=== PATIENT | female | born 1940 | race Caucasian/White ===

== ENCOUNTER → 2016-08-12 | Outpatient (CLI) | payer OTHER, BC ==
[~2016-08-12] MED LIST: ACET-1256 PO; ANT25 PO; ASPCH81X PO; CETI10TA84 PO; DICL-201 PO; LORA-741 PO; MECL1TAB42 PO; METO25TA3 PO; OMEG10007 PO
[2016-08-12 13:50] VITALS: BP 178/76; PULSE 68; TEMP 37; O2SAT 94
--- NOTE | 2016-08-12 14:30 | Radiation Oncology Follow-Up ---
Radiation Oncology Follow-Up Date of Visit Aug 12, 2016. Reason For Visit Annual follow-up Radiation Completion Date Ext. radiation and HDR x 4 01/10/16 Diagnosis (1) Uterus cancer Status: Resolved Onset Date: 08/03/2013 Location: endometrium with vaginal recurrence Histology Subtype: endometrioid adenocarcinoma Stage: ll Permanent Comment: Endometrial biopsy 08/03/2013 revealing endometrioid adenocarcinoma Status post biopsy and robotic hysterectomy with bilateral salpingo- oophorectomy and lymphadenectomy 06/29/2014 pathologic stage [id number] Patient declined adjuvant treatment Vaginal recurrence biopsy 09/10/2014 Status post vaginal biopsy and resection of vaginal tumor 10/03/2014 Status post completion of radiation therapy 01/09/2015 received 5040 cGy with external beam therapy she received 4 high-dose radiation treatments 1400 cGy Last Edited By: Kalie Ventura on Jan 30, 2015 10:50 History of Present Illness Ms. Correa is a 75-year-old female who presented in June 2013 with postmenopausal vaginal bleeding. She had previously had postmenopausal bleeding with prior biopsies in 1996, 1999, 2000, 2001, 2002, 2003, 2004 and 2005. These were all benign. More recently she had recurrent postmenopausal vaginal bleeding and underwent a endometrial biopsy on July 232013. This was positive for an endometrioid adenocarcinoma, FIGO grade 2. Accession #: [id number]. The patient was seen by Dr. Milian and ultimately underwent a robotic hysterectomy, bilateral salpingooophorectomy and lymphadenectomy on 08/30/2013. This tissue confirmed an endometrioid adenocarcinoma measuring 9.4 x 4.0 x 2.2 cm. This was a FIGO grade 2 lesion. There was invasion through 2.2 cm of a myometrial thickness of 2.3 cm. There was invasion of the cervical stromal connective tissue. There was no involvement of the right or left ovary or right or left fallopian tube. The margins were negative but the distance of invasive carcinoma from the closest margin was 0.1 mm. There was lymphovascular invasion. 3 pelvic nodes were identified and all 3 were negative. The final pathologic stage was pT2 pN0 FIGO grade 2. Postoperatively the patient recovered well. She was seen for discussion of adjuvant treatment. This was recommended for consideration of adjuvant radiation. The patient however declined treatment at that time. She was continued to be followed closely. In August of this year she was found to have a vaginal mass that was biopsied on 09/09/2014. This confirmed a recurrent endometrioid adenocarcinoma. Accession #: [id number]. On patient underwent a staging workup consisting of a CT scan of the chest abdomen and pelvis. CT scan of the chest showed few tiny pulmonary nodules within the left lower, right upper and right lower lobes measuring less than [address] scan of the abdomen showed no evidence of abdominal recurrence with no lymphadenopathy or involvement of the abdominal organs. CT scan of the pelvis showed an enhancing 1.4 x 2.7 cm lesion along the left aspect of the upper vaginal stump that was suspicious for recurrent disease. The patient was noted to have a large rectocele. There was a 1 cm mass in the vagina at 6 o'clock position proximally 6 cm from the introitus. She also had a large 3 cm lesion at the left apex of the vagina. On 10/03/2014 an excisional biopsy of the 2 clinically evident vaginal lesions were performed. The biopsy of the left apex confirmed endometrioid adenocarcinoma. Biopsy of the posterior vaginal lesion also confirmed endometrioid adenocarcinoma. These were gross total excisions but not meant to be definitive surgical procedures. Accession #: [id number]. The patient was seen in referral by Dr. Potter radiation oncologist at [facility]. Her recommendation was for consideration of pelvic radiation followed by vaginal cuff boost. The patient wished to receive her treatment closer to home and therefore Dr. Potter referred the patient to me for evaluation and discussion of the role of salvage radiation. Interim History She's been doing well over the past year. She denies any vaginal discharge or irritation. She's had no vaginal bleeding. She's had no change in urination or bowel habits. She saw Dr. Milian 07/01/2016. He felt that she no longer needed to use the vaginal dilator. Her appetite is good and weight is stable. She did have a flu last weekend. This lasted for approximately 3 days. She is now feeling fine. There have been other family members who are ill. She had associated fever and chills. She had Zofran which had previously been given during treatment. She took this and the nausea resolved. 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 She was hospitalized in February for vertigo. She was evaluated and there were no particular findings. She had a CT of the head that was negative for acute intracranial findings. She had carotid Dopplers which did not show arterial stenosis. Allergies Coded Allergies: Cephalosporins (Verified Allergy, Intermediate, RASH, 02/21/13) Penicillins (Verified Allergy, Intermediate, RASH, 02/21/13) Sulfa Drugs (Verified Allergy, Intermediate, RASH, 02/21/13) Travoprost (Unverified Allergy, Intermediate, eyes get red, 02/13/15) Celecoxib (Verified Allergy, Unknown, UNKNOWN, 02/13/15) Home Medications Scheduled Aspirin (Aspirin Chewable), 81 MG PO DAILY Diclofenac (Voltaren), 75 MG PO BID Fish Oil ([place]-3), 1 CAP PO DAILY Lorazepam (Ativan), 0.5 MG PO HS Metoprolol Succinate (Toprol Xl), 25 MG PO DAILY Scheduled PRN Acetaminophen (Tylenol), 2 TAB PO Q6 PRN for Moderate Pain Cetirizine (Zyrtec), 10 MG PO DAILY PRN for allergies Meclizine Hcl (Meclizine Hcl), 1 TAB PO TID PRN for Dizziness or Vertigo Review of Systems Gastrointestinal: Symptoms: WNL GI Comments: Benefiber nightly; Oral: Symptoms: No Problems Respiratory: Symptoms: SOB With Exertion Urinary: Symptoms: WNL Comments: Urgency;2hrs is max betw'n voids;Denies changes since RT Skin: Symptoms: No Problems Other Skin Symptoms: no prob on skin but internally having pruritis feels raw using dilator Physical Exam Vital Signs Date Time Temp Pulse Resp B/P Pulse Ox O2 Delivery O2 Flow Rate FiO2 08/12/16 13:50 37.0 68 24 178/76 94 Pain: Side: Bilateral Patient Pain Scale: 0 - 10 Initial Pain Intensity: 0.0 Fatigue: None General Appearance: no apparent distress Eyes: normal inspection, EOMI Neck: no adenopathy Respiratory/Chest: lungs clear, no respiratory distress, no accessory muscle use Cardiovascular: regular rate, rhythm, no gallop, no murmur Abdomen: normal bowel sounds, non tender, soft, no organomegaly Genitourinary - Female: Pelvic examination reveals foreshortening of the vagina. There are no visible or palpable recurrences. She does have telangiectasis at the apex. There are no masses or tenderness on bimanual examination. Anal / Rectum: Deferred at patient request. Extremities: no pedal edema Neurologic/Psychiatric: no motor/sensory deficits, normal mood/affect Skin: warm/dry Lymphatic: no adenopathy Laboratory Studies Test 05/21/16 08:35 White Blood Count 5.13 K/uL (4.8-10.8) Red Blood Count 4.44 M/uL (4.2-5.4) Hemoglobin 14.0 g/dL (12.0-16.0) Hematocrit 41.5 % (37-47) Mean Corpuscular Volume 93.5 fL (80-100) Mean Corpuscular Hemoglobin 31.5 pg (25-34) Mean Corpuscular Hemoglobin Concent 33.7 g/dl (32-36) Platelet Count 267 K/uL (130-400) Mean Platelet Volume 9.8 fL (7.4-10.4) Neutrophils (%) (Auto) 59.2 % Lymphocytes (%) (Auto) 27.5 % Monocytes (%) (Auto) 8.8 % Eosinophils (%) (Auto) 3.1 % Basophils (%) (Auto) 0.8 % Neutrophils # (Auto) 3.04 K/uL (1.4-6.5) Lymphocytes # (Auto) 1.41 K/uL (1.2-3.4) Monocytes # (Auto) 0.45 K/uL (0.11-0.59) Eosinophils # (Auto) 0.16 K/uL (0-0.5) Basophils # (Auto) 0.04 K/uL (0-0.2) RDW Standard Deviation 41.9 fL (36.4-46.3) RDW Coefficient of Variation 12.4 % (11.5-14.5) Immature Granulocyte % (Auto) 0.6 % Immature Granulocyte # (Auto) 0.03 K/uL (0.00-0.02) Sodium Level 142 mmol/L (136-145) Potassium Level 3.9 mmol/L (3.5-5.1) Chloride Level 109 mmol/L (98-107) Carbon Dioxide Level 24 mmol/L (21-32) Anion Gap 9.0 mmol/L (3-11) Blood Urea Nitrogen 16 mg/dl (7-18) Creatinine 0.90 mg/dl (0.60-1.20) Estimated GFR () 71.5 Estimated GFR (Non- 61.7 BUN/Creatinine Ratio 18.1 (10-20) Random Glucose 134 mg/dl (70-99) Estimated Average Glucose 131 mg/dl Hemoglobin A1c 6.2 % (4.5-5.6) Calcium Level 8.4 mg/dl (8.5-10.1) Total Bilirubin 0.3 mg/dl (0.2-1) Aspartate Amino Transferase (AST) 32 U/L (15-37) Alanine Aminotransferase (ALT) 47 U/L (12-78) Alkaline Phosphatase 73 U/L (45-117) Total Protein 7.0 gm/dl (6.4-8.2) Albumin 3.7 gm/dl (3.4-5.0) Globulin 3.3 gm/dl (2.5-4.0) Albumin/Globulin Ratio 1.1 (0.9-2) Triglycerides Level 312 mg/dl (0-150) Cholesterol Level 223 mg/dl (0-200) HDL Cholesterol 40 mg/dl LDL Cholesterol, Calculated 121 mg/dl VLDL Cholesterol, Calculated 62 mg/dl Cholesterol/HDL Ratio 5.6 Assessment & Plan Plan: Continue regular follow-up with Dr. Milian and Dr. Goff. She'll be seeing Dr. Milian on October 25. We asked to return to our office in 1 year. She may call our office if she has any questions or concerns in the interim. Total Time In Follow-Up I spent 20 minutes speaking to the patient performing examination. I spent 10 minutes reviewing information and completing's note. Copy To Angel Milian M.D.; Shelton Goff M.D.
== END | disposition home or self-care (01) ==
LOC: C.ONC 13:18
PROVIDERS: ATTEND Radiology Radiation Oncology
DX: Z08 Encounter for follow-up examination after completed treatment for malignant neoplasm (principal); Z92.3 Personal history of irradiation; Z85.42 Personal history of malignant neoplasm of other parts of uterus

== ENCOUNTER → 2017-06-06 | Outpatient (CLI) | payer OTHER, BC ==
[~2017-06-06] MED LIST changes: -ANT25 PO
--- NOTE | 2017-06-06 14:45 | MAMMOGRAPHY REPORT ---
BILATERAL DIGITAL SCREENING MAMMOGRAM TOMOSYNTHESIS WITH CAD: 06/06/2017 CLINICAL HISTORY: Routine screening. Patient has no complaints. TECHNIQUE: Breast tomosynthesis in addition to standard 2D mammography was performed. Current study was also evaluated with a Computer Aided Detection (CAD) system. COMPARISON: No prior exams were available for comparison. A reported mammogram from 2004 have been purged. BREAST COMPOSITION: The tissue of both breasts is heterogeneously dense, which may obscure small mas ses. FINDINGS: There is a possible area of architectural distortion in the middle one third of the left b reast along the posterior nipple line on the CC view (tomosynthesis slice 43/66), thought to project superiorly based on the MLO view. Additional spot compression tomosynthesis views and possible ultra sound are recommended. There are scattered benign rim calcifications bilaterally. No other suspicious mass, architectural di stortion or cluster of microcalcifications is seen. IMPRESSION: ACR BI-RADS CATEGORY 0: INCOMPLETE EVALUATION: NEED ADDITIONAL IMAGING EVALUATION The possible area of architectural distortion in the middle one third of the left breast needs additi onal evaluation. The patient will be called to schedule an appointment. Approximately 10% of breast cancers are not detected with mammography. A negative mammographic report should not delay biopsy if a clinically suggestive mass is present. Yanci Valentine M.D. ay/:06/06/2017 13:13:56 Business Assistant: Massiel MCCRAY(Afshin)([place]), [facility] letter sent: Addl Imaging 0 BI-RADS Code: ACR BI-RADS Category 0: Incomplete Evaluation: Need Additional Imaging Evaluation
== END | disposition home or self-care (01) ==
LOC: C.MAMM 10:47
PROVIDERS: ATTEND Obstetrics & Gynecology
DX: Z12.31 Encounter for screening mammogram for malignant neoplasm of breast (principal); N64.89 Other specified disorders of breast

== ENCOUNTER → 2017-06-15 | Outpatient (CLI) | payer OTHER, BC ==
--- NOTE | 2017-06-16 07:55 | MAMMOGRAPHY REPORT ---
UNILATERAL LEFT DIGITAL DIAGNOSTIC MAMMOGRAM TOMOSYNTHESIS AND TARGETED LEFT ULTRASOUND: 06/15/2017 CLINICAL HISTORY: 76-year-old woman called back from screening mammography for a possible area of arc hitectural distortion in the left breast. TECHNIQUE: Spot compression tomosynthesis left CC and MLO views were obtained. Full field tomosynth esis left CC and ML views were also obtained after placement of a skin BB marker. COMPARISON: Comparison is made to exam dated: 06/06/2017 mammogram - [facility]. BREAST COMPOSITION: The tissue of the left breast is heterogeneously dense, which may obscure small masses. FINDINGS: The spot compression tomosynthesis views of the left breast demonstrate a persistent area of focal architectural distortion in the 12:00 middle to anterior left breast, 5 cm distal to the nip ple on the CC view, measuring approximately 13 mm. No other definite areas of distortion or asymmetr y is identified. Further evaluation with ultrasound was performed. Targeted ultrasound was performed in the left breast from the 1:00 through 11:00 axes. There is hypo echoic tissue in the 1:00 left breast, 9 cm from the nipple that may simply represent normal dense ti ssue and stromal fibrosis. There is no definite associated distortion in this area and real-time sca nning. However in the 11:00 left breast, 4 cm from the nipple, there is a more masslike hypoechoic a stephanie with possible associated distortion. This mass measures 1.3 x 0.9 x 0.7 cm. Given the subtle na ture it is unclear if this definitely correlates with the mammographic distortion therefore a skin BB was placed overlying this sonographic mass in the field left CC and ML tomosynthesis images were per formed. These additional tomosynthesis views demonstrate alignment of the BB marker with the mammogr aphic abnormality. Therefore, ultrasound-guided core needle biopsy is recommended. Tomosynthesis guided biopsy was also discussed with the patient, but she reports she would not be abl e to lie on her stomach for at the biopsy therefore ultrasound-guided biopsy is preferred. IMPRESSION: ACR BI-RADS CATEGORY 4: SUSPICIOUS, TARGETED ULTRASOUND ACR BI-RADS CATEGORY 4: SUSPICIO US 1. There is a hypoechoic 13 mm mass with associated architectural distortion in the 12:00 left breas t that is suspicious for malignancy. Further evaluation with an ultrasound-guided core biopsy and po stprocedure tomosynthesis mammograms is recommended. These results and recommendations were discussed with the patient at the time of the exam. She tenta tively scheduled the left breast biopsy prior to leaving our department. Approximately 10% of breast cancers are not detected with mammography. A negative mammographic report should not delay biopsy if a clinically suggestive mass is present. Yanci Valentine M.D. ay/:06/15/2017 15:36:36 Journeyman Millwright: Symone MCCRAY(Afshin)([place]), [facility] letter sent: Abnormal 4/5 BI-RADS Code: ACR BI-RADS Category 4: Suspicious Ultrasound BI-RADS: ACR BI-RADS Category 4: Suspici ous
== END | disposition home or self-care (01) ==
LOC: C.MAMM 13:39
PROVIDERS: ATTEND Obstetrics & Gynecology
DX: N64.9 Disorder of breast, unspecified (principal); N63.20 Unspecified lump in the left breast, unspecified quadrant

== ENCOUNTER → 2017-06-22 | Outpatient (CLI) | payer OTHER, BC ==
--- NOTE | 2017-06-22 14:25 | Discharge Instructions ---
Discharge Instructions Procedure Procedure Date: Jun 22, 2017. Reason for visit: Left Breast Mass. Discharge Discharge Date: Jun 22, 2017. Discharge Diagnosis: post left breast ultrasound guided core biopsy Instructions Activity Recommendations: Additional Limitations (see below) Return to School/Work: no limitations Recommended Home Diet: No Limitations Provider Instructions: ACTIVITY RECOMMENDATIONS: * No lifting, pushing, pulling or exercising the affected side for three days. RETURN TO SCHOOL/WORK: * You may return to work/school after the procedure, but do not perform any strenuous activities for 24 to 48 hours. MEDICATIONS: * Tylenol (two 325 mg) every four to six hours if needed for mild pain (if not allergic to Tylenol). DIET: * Resume previous diet. SPECIAL CARE INSTRUCTIONS: * Keep biopsy site dry for 24 hours. May shower after 24 hours, but do not soak (bathe) incision. * May remove Tegaderm (plastic patch) tomorrow AFTER showering. * Leave the steri-strips on for one week. Allow the steri-strips to fall off by themselves. If not off after one week, you may remove them. You may place a Bandaid crosswise over the strips, if desired. * Apply ice 10 minutes on and 10 minutes off as needed. * Wear a bra at bedtime to sleep more comfortably for 2-3 days. * Your referring physician should have the results after approximately 5 to 7 business days. * Call for unusual bleeding, fever, drainage, etc or if you have any questions call [phone] during normal business hours or after hours call Dr Valentine, . FOLLOW UP VISIT: Follow-up with Referring Physician as scheduled. Allergies Coded Allergies: Cephalosporins (Verified Allergy, Intermediate, RASH, 02/21/13) Penicillins (Verified Allergy, Intermediate, RASH, 02/21/13) Sulfa Drugs (Verified Allergy, Intermediate, RASH, 02/21/13) Travoprost (Unverified Allergy, Intermediate, eyes get red, 02/13/15) Celecoxib (Verified Allergy, Unknown, UNKNOWN, 02/13/15) Johnna Arevalo Recommendations: Call your doctor if: * Temperature above 101 degrees * Pain not relieved by pain medicine ordered * There is increased drainage or redness from any incision * You have any unanswered questions or concerns. Your Doctors Instructions noted above were prepared by provider Yanci Valentine. Patient Signature Section: Patient Instructions Signature Page Maria Esther Correa Patient (or Guardian) Signature/Date: I have read and understand the instructions given to me by my caregivers. Caregiver/RN/Doctor Signature/Date: The above-named patient and/or guardian has received patient instructions on this date. + Original Patient Signature Page (only) stays with chart. Please make copy for patient.
--- NOTE | 2017-06-22 15:15 | MAMMOGRAPHY REPORT ---
THIS REPORT HAS BEEN AMENDED. ULTRASOUND GUIDED BIOPSY LEFT BREAST: 06/22/2017 CLINICAL HISTORY: 13 mm mass with associated architectural distortion in the 11:00 to 12:[address] Patient presents for ultrasound-guided core biopsy. COMPARISON: Comparison is made to exams dated: 06/15/2017 ultrasound, 06/15/2017 mammogram, and 05/19 mammogram - [facility]. PATIENT CONSENT: The procedure, risks and benefits were discussed with the patient and informed conse nt was obtained both verbally and in writing. Specific risks to this procedure include: bleeding, in fection, puncture of adjacent structure, nontarget biopsy, sampling error, pain, metal allergy and me dication reaction. PROCEDURE DESCRIPTION: A time out was performed and the left breast was agreed as the site of biopsy. The skin was prepped and draped in the usual sterile fashion. The 13 mm hypoechoic mass with associa dudley architectural distortion in the 11:00 to 12:00 left breast was chosen as the target for biopsy. S ubcutaneous and intraparenchymal 1% buffered lidocaine, with and without epinephrine, was administere d as local anesthesia. A skin incision was made. Through the incision, 5 samples were taken with a 1 4 gauge Achieve biopsy device. A ribbon shaped metallic marker was placed at the biopsy site. Hemosta sis was achieved after manual compression. The patient tolerated the procedure well and there was no immediate complication. The samples were sent to the pathology department in an appropriately labele d container. Postprocedure left CC and ML tomosynthesis images were obtained. A new ribbon-shaped biopsy marker c lip is identified in the 12:00 left breast, aligning with the area of architectural distortion in que stion. No significant postbiopsy hematoma is seen. IMPRESSION: ULTRASOUND GUIDED BIOPSY Status post ultrasound guided core biopsy of a 13 mm mass with associated architectural distortion in the 12:00 left breast, with biopsy marker clip placed at the site. The patient will receive notification of the biopsy results from her referring physician. Yanci Valentine M.D. ay/:06/22/2017 14:41:56 Attending Technologist: Mouna VELIZ)([place]), [facility] Founder Chairman And Chief Creative Officer: Dr. Yanci Valentine, [facility] AMENDMENT: 06/23/2017 Yanci Meme, M.D. 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 Estrogen and progesterone receptor positive, HER-2/sonya negative. The pathology results are concordant with the imaging appearance. Given the heterogeneously dense breast parenchyma, would rec ommend a breast MRI prior to definitive treatment, to assess extent of disease in the left breast and also to assess for the possibility of contralateral disease.
--- NOTE | 2017-06-22 15:18 | MAMMOGRAPHY REPORT ---
UNILATERAL LEFT DIGITAL DIAGNOSTIC MAMMOGRAM TOMOSYNTHESIS: 06/22/2017 CLINICAL HISTORY: Status post ultrasound-guided core biopsy of a hypoechoic mass with associated arch itectural distortion in the 11:00 to 12:00 left breast. Please refer to the report from left breast ultrasound guided core biopsy performed at the same time for full detail. IMPRESSION: POST PROCEDURE IMAGING FOR MARKER PLACEMENT Please refer to the report from left breast ultrasound guided core biopsy performed at the same time for full detail. Approximately 10% of breast cancers are not detected with mammography. A negative mammographic report should not delay biopsy if a clinically suggestive mass is present. Yanci Valentine M.D. ay/:06/22/2017 14:24:09 Organ Installer: Mouna MCCRAY(R)(M), [facility] BI-RADS Code: Post Procedure Imaging For Marker Placement
== END | disposition home or self-care (01) ==
LOC: C.MAMM 13:27
PROVIDERS: ATTEND Obstetrics & Gynecology
DX: C50.912 Malignant neoplasm of unspecified site of left female breast (principal)

== ENCOUNTER → 2017-07-29 | Outpatient (CLI) | payer OTHER, BC ==
--- NOTE | 2017-07-29 14:42 | DIAGNOSTIC IMAGING REPORT ---
CHEST 2 VIEWS ROUTINE CLINICAL HISTORY: Preoperative evaluation. COMPARISON STUDY: Chest radiograph February 21, 2014. FINDINGS: Mild lung hyperexpansion is noted. Linear left apical opacity suggests scarring. There is no consolidation to suggest pneumonia. Pulmonary vascularity is normal. Mild cardiomegaly is unchanged. Appearance of the chest is unchanged. IMPRESSION: 1. No acute cardiopulmonary findings. 2. Mild cardiomegaly. Electronically signed by: Dwaine Corona M.D. 07/29/2017 2:41 PM Dictated Date/Time: 07/29/2017 2:37 PM
== END | disposition home or self-care (01) ==
LOC: C.RAD1850 14:13
PROVIDERS: ATTEND Physician Assistant Medical
DX: Z01.818 Encounter for other preprocedural examination (principal)

== ENCOUNTER → 2017-08-09 | Outpatient (CLI) | payer OTHER, BC ==
[2017-08-09 13:55] VITALS: BP 172/84; PULSE 68; TEMP 37; O2SAT 95
--- NOTE | 2017-08-09 15:55 | Radiation Oncology Follow-Up ---
Radiation Oncology Follow-Up Date of Visit Aug 09, 2017. Reason For Visit Annual follow-up Radiation Completion Date Ext. 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 Correa presented in June 2013 with postmenopausal vaginal bleeding. She had previously had postmenopausal bleeding with prior biopsies in 1996, 1999, 2000, 2001, 2002, 2003, 2004 and 2005. These were all benign. More recently she had recurrent postmenopausal vaginal bleeding and underwent a endometrial biopsy on July 232013. This was positive for an endometrioid adenocarcinoma, FIGO grade 2. Accession #: [id number]. The patient was seen by Dr. Milian and ultimately underwent a robotic hysterectomy, bilateral salpingooophorectomy and lymphadenectomy on 08/30/2013. This tissue confirmed an endometrioid adenocarcinoma measuring 9.4 x 4.0 x 2.2 cm. This was a FIGO grade 2 lesion. There was invasion through 2.2 cm of a myometrial thickness of 2.3 cm. There was invasion of the cervical stromal connective tissue. There was no involvement of the right or left ovary or right or left fallopian tube. The margins were negative but the distance of invasive carcinoma from the closest margin was 0.1 mm. There was lymphovascular invasion. 3 pelvic nodes were identified and all 3 were negative. The final pathologic stage was pT2 pN0 FIGO grade 2. Postoperatively the patient recovered well. She was seen for discussion of adjuvant treatment. This was recommended for consideration of adjuvant radiation. The patient however declined treatment at that time. She was continued to be followed closely. In August of this year she was found to have a vaginal mass that was biopsied on 09/09/2014. This confirmed a recurrent endometrioid adenocarcinoma. Accession #: [id number]. On patient underwent a staging workup consisting of a CT scan of the chest abdomen and pelvis. CT scan of the chest showed few tiny pulmonary nodules within the left lower, right upper and right lower lobes measuring less than [address] scan of the abdomen showed no evidence of abdominal recurrence with no lymphadenopathy or involvement of the abdominal organs. CT scan of the pelvis showed an enhancing 1.4 x 2.7 cm lesion along the left aspect of the upper vaginal stump that was suspicious for recurrent disease. The patient was noted to have a large rectocele. There was a 1 cm mass in the vagina at 6 o'clock position proximally 6 cm from the introitus. She also had a large 3 cm lesion at the left apex of the vagina. On 10/03/2014 an excisional biopsy of the 2 clinically evident vaginal lesions were performed. The biopsy of the left apex confirmed endometrioid adenocarcinoma. Biopsy of the posterior vaginal lesion also confirmed endometrioid adenocarcinoma. These were gross total excisions but not meant to be definitive surgical procedures. Accession #: [id number]. The patient was seen in referral by Dr. Potter radiation oncologist at [place]. Her recommendation was for consideration of pelvic radiation followed by vaginal cuff boost. The patient wished to receive her treatment closer to home and therefore Dr. Potter referred the patient to our office for evaluation and discussion of the role of salvage radiation. She completed radiation therapy 01/09/2015. She received 5040 cGy with external beam therapy. She had for high-dose radiation treatments at totaling 1400 cGy Interim History She's been doing well over the past year. In regards to the prior treatment for the and a mutual cancer. She denies any vaginal discharge or irritation. She has urinary frequency which is unchanged from previous. She has some issues with occasional constipation. For this she uses Colace or fiber. She has had regular follow-up visits with Dr. Milian. There is been no signs of recurrence. She'll see him 08/29/2017. She saw him 02/28/2017. She has been diagnosed with cancer of the left breast. She has undergone a biopsy as well as lumpectomy. She is following with Dr. Gudino [facility]. She has a follow-up appointment with her. She has not completed her full evaluation. Allergies Coded Allergies: Cephalosporins (Verified Allergy, Intermediate, RASH, 02/21/13) Penicillins (Verified Allergy, Intermediate, RASH, 02/21/13) Sulfa Drugs (Verified Allergy, Intermediate, RASH, 02/21/13) Travoprost (Unverified Allergy, Intermediate, eyes get red, 02/13/15) Celecoxib (Verified Allergy, Unknown, UNKNOWN, 02/13/15) Home Medications Scheduled Aspirin (Aspirin Chewable), 81 MG PO DAILY Diclofenac (Voltaren), 75 MG PO BID Fish Oil (Freeborn-3), 1 CAP PO DAILY Lorazepam (Ativan), 0.5 MG PO HS Metoprolol Succinate (Toprol Xl), 50 MG PO DAILY Scheduled PRN Acetaminophen (Tylenol), 2 TAB PO Q6 PRN for Moderate Pain Cetirizine (Zyrtec), 10 MG PO DAILY PRN for allergies Meclizine Hcl (Meclizine Hcl), 1 TAB PO TID PRN for Dizziness or Vertigo Review of Systems Gastrointestinal: Symptoms: WNL GI Comments: 1-2 BMs/day and mostly formed stools;Hemorrhoidal spotting; Oral: Symptoms: No Problems Other Oral Symptoms: Takes a benefiber daily; Respiratory: Symptoms: SOB With Exertion Other Respiratory: Age related SOB w/exertion - no change; Urinary: Symptoms: Nocturia, Frequency Comments: Doesn't ignore urge to void;2 hr is about limit betw'n voids;3 voids/night; Skin: Symptoms: No Problems Other Skin Symptoms: See below notations Physical Exam Vital Signs Date Time Temp Pulse Resp B/P (MAP) Pulse Ox O2 Delivery O2 Flow Rate FiO2 08/09/17 13:55 37.0 68 20 172/84 95 General Appearance: no apparent distress Eyes: normal inspection ENT: normal ENT inspection, hearing grossly normal Respiratory/Chest: lungs clear, no respiratory distress, no accessory muscle use Cardiovascular: regular rate, rhythm, no gallop, no murmur Abdomen: non tender, soft, no organomegaly Genitourinary - Female: external genitalia normal, + pertinent finding (mild telangiectasia of the vaginal vault. Visible and palpable enterocele. There are no masses or tenderness.) Extremities: no pedal edema Neurologic/Psychiatric: no motor/sensory deficits, alert, normal mood/affect Skin: warm/dry Pain Management Patient Reports Pain: No Side: Bilateral Pain Location: None Patient Preferred Pain Scale: 0 - 10 Initial Pain Intensity: 0.0 Pain Management Plan She denied pain therefore requires no pain management. Laboratory Laboratory Results: not applicable Pathology Pathology Results: not applicable Imaging Imaging Studies: not applicable Additional Studies Plan: Continue follow-up with Dr. Milian. She'll see him 08/29/2017. In regards to the diagnosis of the breast cancer. She will be following up with Dr. Gudino. If she requires radiation therapy she'll be referred back to our office. There is currently no medical oncology referral. She'll otherwise return to our office in 1 year for reevaluation of the prior treatment for endometrial cancer. She may call if she has any questions or concerns in the interim. Assessment & Plan (Attending) I spent 20 minutes speaking to the patient performing examination. I spent 15 minutes reviewing information in completing this note. Copy To Angel Milian M.D.; Shelton Goff M.D.
== END | disposition home or self-care (01) ==
LOC: C.ONC 12:59
PROVIDERS: ATTEND Physician Assistant Medical
DX: Z08 Encounter for follow-up examination after completed treatment for malignant neoplasm (principal); Z92.3 Personal history of irradiation; Z85.42 Personal history of malignant neoplasm of other parts of uterus